=== PATIENT | female | born 1985 | race American Indian/Alaskan Native ===

== ENCOUNTER 2022-02-04 14:46 | Emergency (ER) | payer SELFPAY ==
[2022-02-05] MEDS ORDERED: SODIUM CHLORIDE 0.9% 1000 ML 1,000 ML IV ONE ×2 (05:36→07:02)
[2022-02-05 06:24] LABS: Basophils % (Auto) 0.6 % (0.0-1.8); Hematocrit 35.1 % (30.3-42.9); Hemoglobin 12.1 gm/dl (10.1-14.3); Lymphocytes # (Auto) 2.3 K/mm3 (1.2-5.4); Lymphocytes % (Auto) 47.7 % (13.4-35.0); Mean Corpuscular HGB Conc 35 % (30-34); Mean Corpuscular Volume 96 fl (79-97); Monocytes # (Auto) 0.5 K/mm3 (0.0-0.8); Monocytes % (Auto) 11.1 % (0.0-7.3); Platelet Count 191 K/mm3 (140-440); Red Blood Count 3.65 M/mm3 (3.65-5.03); Red Cell Distribution Width 12.8 % (13.2-15.2)
[2022-02-05 06:34] LABS: INR 1.09 (0.87-1.13)
[2022-02-05 06:41] LABS: Color,Urine Yellow (Yellow)
[2022-02-05 06:41] LABS: Alanine Aminotransferase 12 units/L (7-56); Albumin 3.6 g/dL (3.9-5); Blood Urea Nitrogen 15 mg/dL (7-17); Calcium 8.8 mg/dL (8.4-10.2); Hemolysis Index 10
[2022-02-05 06:45] LABS: BUN/Creatinine Ratio 25
[2022-02-05 06:46] LABS: Bacteria,Urine 3+ /HPF (Negative)
[2022-02-05 06:48] LABS: HCG Qualitative,Urine Negative (Negative)
[2022-02-05 06:50] LABS: Amphetamine Screen,Urine PRESUMPTIVE NEGATIVE; Benzodiazepines Screen,Urine PRESUMPTIVE NEGATIVE; Cannabinoid Screen,Urine PRESUMPTIVE NEGATIVE; Cocaine Screen,Urine PRESUMPTIVE POSITIVE; Methadone Screen,Urine PRESUMPTIVE NEGATIVE; Opiate Screen,Urine PRESUMPTIVE NEGATIVE
--- NOTE | 2022-02-05 07:37 | Emergency Department Report ---
- General Chief complaint: Weakness Stated complaint: WEAKNESS Time Seen by Provider: 02/05/22 06:57 Source: patient, EMS Mode of arrival: Stretcher Limitations: No Limitations - History of Present Illness Initial comments: 36-year-old female who presents with generalized body weakness and fatigue that is been going on for the last 3 days progressively getting worse. Patient rep orts very low appetite and that she has not eating anything the last 3 days. Patient also mention low blood pressure after she checked yesterday. Patient denies any fever but chills. No nausea, vomiting or diarrhea reported. No other modifying or associated factors reported. MD Complaint: generalized weakness - Related Data Allergies Allergy/AdvReac Type Severity Reaction Status Date / Time Penicillins AdvReac Unknown Verified 02/04/22 14:54 ED Review of Systems ROS: Stated complaint: WEAKNESS Other details as noted in HPI Comment: All other systems reviewed and negative Constitutional: chills, malaise, weakness Gastrointestinal: denies: nausea, vomiting Neurological: weakness ED Physical Exam - General Limitations: No Limitations General appearance: alert, in no apparent distress - Head Head exam: Present: normal inspection - Eye Eye exam: Present: normal appearance Pupils: Present: normal accommodation - ENT ENT exam: Present: normal exam, normal orophraynx, mucous membranes dry - Neck Neck exam: Present: normal inspection, full ROM. Absent: tenderness - Respiratory Respiratory exam: Present: normal lung sounds bilaterally. Absent: respiratory distress, accessory muscle use - Cardiovascular Cardiovascular Exam: Present: regular rate, normal rhythm, normal heart sounds - GI/Abdominal GI/Abdominal exam: Present: soft, normal bowel sounds. Absent: distended, tenderness - Extremities Exam Extremities exam: Present: normal inspection, normal capillary refill. Absent: tenderness, pedal edema - Back Exam Back exam: Absent: tenderness - Neurological Exam Neurological exam: Present: alert, oriented X3 - Psychiatric Psychiatric exam: Present: normal affect, normal mood - Skin Skin exam: Present: warm, normal color ED Course Vital Signs 02/04/22 02/05/22 02/05/22 14:48 04:45 04:46 Temperature 98.4 F 98.2 F Pulse Rate 90 55 L 56 L Respiratory 14 14 11 L Rate Blood Pressure 90/52 Blood Pressure 98/60 90/52 [Left] O2 Sat by Pulse 98 100 100 Oximetry 02/05/22 02/05/22 02/05/22 05:00 05:16 05:30 Temperature Pulse Rate 53 L 51 L 53 L Respiratory 13 13 14 Rate Blood Pressure 83/49 84/47 80/42 Blood Pressure [Left] O2 Sat by Pulse 99 99 99 Oximetry 02/05/22 02/05/22 02/05/22 05:46 06:16 06:30 Temperature Pulse Rate 55 L 56 L 53 L Respiratory 14 19 14 Rate Blood Pressure 82/42 107/77 84/50 Blood Pressure [Left] O2 Sat by Pulse 97 100 Oximetry 02/05/22 02/05/22 02/05/22 06:46 07:00 07:16 Temperature Pulse Rate 58 L 68 50 L Respiratory 15 18 14 Rate Blood Pressure 86/55 83/49 88/48 Blood Pressure [Left] O2 Sat by Pulse 99 99 100 Oximetry 02/05/22 02/05/22 02/05/22 07:30 07:46 08:00 Temperature Pulse Rate 52 L 54 L 52 L Respiratory 14 15 12 Rate Blood Pressure 91/56 99/54 91/57 Blood Pressure [Left] O2 Sat by Pulse 100 100 100 Oximetry 02/05/22 02/05/22 02/05/22 08:10 08:16 08:30 Temperature Pulse Rate 60 62 Respiratory 14 14 Rate Blood Pressure 82/50 87/51 Blood Pressure [Left] O2 Sat by Pulse 99 99 99 Oximetry 02/05/22 02/05/22 02/05/22 08:46 09:00 09:16 Temperature Pulse Rate 54 L 59 L 59 L Respiratory 15 16 15 Rate Blood Pressure 88/54 95/62 93/61 Blood Pressure [Left] O2 Sat by Pulse 100 98 99 Oximetry 02/05/22 02/05/22 02/05/22 09:30 09:46 10:00 Temperature Pulse Rate 56 L 56 L 52 L Respiratory 14 13 14 Rate Blood Pressure 89/58 89/55 89/55 Blood Pressure [Left] O2 Sat by Pulse 98 98 97 Oximetry 02/05/22 02/05/22 02/05/22 10:16 10:30 10:46 Temperature Pulse Rate 54 L 56 L 62 Respiratory 14 15 17 Rate Blood Pressure 88/58 91/60 97/56 Blood Pressure [Left] O2 Sat by Pulse 98 98 98 Oximetry 02/05/22 02/05/22 02/05/22 11:00 11:15 11:30 Temperature Pulse Rate 51 L Respiratory 15 Rate Blood Pressure 101/61 95/59 91/58 Blood Pressure [Left] O2 Sat by Pulse 99 99 98 Oximetry 02/05/22 11:46 Temperature Pulse Rate Respiratory Rate Blood Pressure 94/56 Blood Pressure [Left] O2 Sat by Pulse 99 Oximetry - Reevaluation(s) Reevaluation #1: 02/05/22 13:47 ED Medical Decision Making - Lab Data Result diagrams: 02/05/22 05:54 02/05/22 05:54 - Medical Decision Making here with generalized weakness and fatigue-- this could as a result of infec tious process or electrolytes abnormality -- or thyroid abnormality-- so will get CBC, CMP, UA and CXR for evaluation and treatment accordingly-- pt able to get off her bed and walk around the nursing station to the toilet without any symptoms-- labs reviewed to be wnl 02/05/22 13:48--pt reassured and will discharge to home with close follow up -- Critical care attestation.: If time is entered above; I have spent that time in minutes in the direct care of this critically ill patient, excluding procedure time. ED Disposition Clinical Impression: Generalized weakness Fatigue Qualifiers: Fatigue type: unspecified Qualified Code(s): R53.83 - Other fatigue Disposition: 01 HOME / SELF CARE / HOMELESS Is pt being admited?: No Does the pt Need Aspirin: No Condition: Undetermined Instructions: Weakness, [id number] Additional Instructions: Start with bland diet and advance as tolerated Increase your daily fluid to help your hydration Call and schedule follow-up with your primary doctor in the next 3 to 5 days for progress Call or return to emergency if your symptoms worsen Referrals: PRIMARY CARE, [Primary Care Provider] - 3-5 Days Time of Disposition: 13:50
--- NOTE | 2022-02-05 08:51 | XRay Report ---
CHEST 1 VIEW INDICATION: Altered Mental Status. COMPARISON: None. FINDINGS: Support devices: None. Heart: Normal. Lungs/Pleura: No acute pulmonary or pleural findings. Lungs are hyperinflated. IMPRESSION: 1. No acute findings. Signer Name: Damian Jones MD Signed: 02/05/2022 8:47 AM Workstation Name: [id number]
[2022-02-05 13:49] VITALS: BP 102/65
--- NOTE | 2022-02-06 22:13 | Electrocardiograph Report ---
[facility] Test Date: 2022-02-05 Test Time: 06:34:49 Pat Name: JOHN ENGEL Department: Room: Gender: F Escrow Assistant: ROSALINDA : 1985 Requested By: LIANET LEIGH Order Number: [id number] Reading MD: Rachael Swann Measurements Intervals [place] Rate: 55 P: 73 [place]: 165 QRS: -51 QRSD: 95 T: 71 QT: 440 QTc: 421 Interpretive Statements Sinus bradycardia LAD, consider left anterior fascicular block No previous ECG available for comparison Electronically Signed On 02-06-2022 22:13:02 EDT by Rachael Swann
== END 2022-02-05 14:05 | disposition home or self-care (01) ==
LOC: ED 14:46
DX: R53.1 Weakness (principal); R53.83 Other fatigue; R79.1 Abnormal coagulation profile; Z88.0 Allergy status to penicillin; Z79.899 Other long term (current) drug therapy
CPT/HCPCS: 36415; 71045; 80053; 80307; 81001; 81025; 82140; 82550; 84484; 85025; 85610; 93005; 96360; 96361; 99284; J7030; 80320; G0480